=== PATIENT | female | born 1960 | race Caucasian/White ===

== ENCOUNTER 2017-09-03 21:32 | Emergency (ER) | payer OTHER ==
[~2017-09-03] VITALS: Ht 167.6 cm; Wt 103.4 kg
[2017-09-04 01:13] VITALS: BP 132/76
== END 2017-09-04 01:13 | disposition home or self-care (01) ==
LOC: ED 21:32
DX: S41.111A Laceration without foreign body of right upper arm, initial encounter (principal); I10 Essential (primary) hypertension; E11.9 Type 2 diabetes mellitus without complications; Z79.4 Long term (current) use of insulin; Z88.5 Allergy status to narcotic agent; W22.8XXA Striking against or struck by other objects, initial encounter; Y93.89 Activity, other specified; Y99.8 Other external cause status; Y92.89 Other specified places as the place of occurrence of the external cause
CPT/HCPCS: 90715

== ENCOUNTER 2018-03-29 22:27 | Emergency (ER) | payer OTHER ==
[~2018-03-29] VITALS: Ht 167.6 cm; Wt 104.3 kg
[2018-03-29 22:39] VITALS: Ht 167.6 cm; Wt 104.3 kg
[2018-03-30 00:09] VITALS: BP 104/68
== END 2018-03-30 00:25 | disposition home or self-care (01) ==
LOC: ED 22:27
DX: S86.812A Strain of other muscle(s) and tendon(s) at lower leg level, left leg, initial encounter (principal); S50.02XA Contusion of left elbow, initial encounter; I10 Essential (primary) hypertension; E11.9 Type 2 diabetes mellitus without complications; Z88.5 Allergy status to narcotic agent; W10.9XXA Fall (on) (from) unspecified stairs and steps, initial encounter; Y93.89 Activity, other specified; Y92.89 Other specified places as the place of occurrence of the external cause; Y99.8 Other external cause status
CPT/HCPCS: J1885; Q0092

== ENCOUNTER 2018-05-21 03:39 | Inpatient (IN) | payer OTHER ==
[~2018-05-21] VITALS: Ht 167.6 cm; Wt 109.1 kg
[2018-05-21 04:11] LABS: BASOPHIL % 1.4 % (0-2); PLATELET COUNT 285 x10^3mcL (130-400); RED CELL DISTRIBUTION WIDTH 13.9 % (11.5-14.5)
[2018-05-21 04:20] LABS: CALCIUM 9.2 mg/dL (8.5-10.1); CARBON DIOXIDE 30.3 mmol/L (21-32); CHLORIDE SERUM 99 mmol/L (98-107); GFR1 > 60 mL/min; GLUCOSE SERUM 95 mg/dL (74-106); POTASSIUM SERUM 3.1 mmol/L (3.5-5.1); SODIUM SERUM 140 mmol/L (136-145)
[2018-05-21 04:25] LABS: ALBUMIN 3.8 g/dL (3.4-5.0); ALKALINE PHOSPHATASE 71 U/L (46-116); ALT/SGPT 45 U/L (14-59); AST/SGOT 35 U/L (15-37); BILIRUBIN TOTAL 0.34 mg/dL (0.20-1.00); TOTAL PROTEIN, SERUM 7.3 g/dL (6.4-8.2)
[2018-05-21] MEDS ORDERED: ZOLOFT25 MG PO (04:55)
[2018-05-21] MEDS ORDERED: METFORMIN HYDR500 M1 PO (04:55)
[2018-05-21] MEDS ORDERED: ZESTRIL20 MG PO (04:56)
[2018-05-21] MEDS ORDERED: FARXIGA10 MG PO (04:56)
[2018-05-21] MEDS ORDERED: HUMULIN 70/303 ML (04:57)
[2018-05-21] MEDS ORDERED: TRULICITY0.75 MG/0. (04:57)
[2018-05-21] MEDS ORDERED: ATENOLOL/CHLORT1 TA1 PO (04:57)
[2018-05-21 05:43] LABS: CHOLESTEROL/HDL RATIO 3.4; MAGNESIUM 1.9 mg/dL (1.8-2.4); PHOSPHOROUS 3.7 mg/dL (2.5-4.9)
[2018-05-21 05:47] VITALS: BP 105/51
[2018-05-21 05:48] LABS: T3 TOTAL 1.35 ng/mL
[2018-05-21 05:52] LABS: FREE T4 1.03 ng/dL (0.76-1.46); FREE THYROXINE INDEX 3.3 ug/dL (1.4-4.5); T4(THYROXINE) 9.3 ug/dL (4.7-13.3)
[2018-05-21 07:56] VITALS: BP 107/60
[2018-05-21 10:26] LABS: microscopic required? NO
[2018-05-21 10:49] LABS: UA SPECIFIC GRAVITY 1.025 (1.005-1.035); urine erythrocyte NEGATIVE (NEGATIVE)
[2018-05-21 12:59] VITALS: BP 114/69
[2018-05-21 20:59] VITALS: BP 113/66
[2018-05-22 05:13] VITALS: BP 113/57
[2018-05-22 07:12] LABS: BASOPHIL % 1.2 % (0-2); PLATELET COUNT 221 x10^3mcL (130-400); RED CELL DISTRIBUTION WIDTH 14.3 % (11.5-14.5)
[2018-05-22 08:04] LABS: CALCIUM 8.9 mg/dL (8.5-10.1); CARBON DIOXIDE 28.7 mmol/L (21-32); CHLORIDE SERUM 103 mmol/L (98-107); CREATININE SERUM 0.9 mg/dL (0.6-1.0); GFR1 > 60 mL/min; GLUCOSE SERUM 166 mg/dL (74-106); MAGNESIUM 1.9 mg/dL (1.8-2.4); PHOSPHOROUS 3.4 mg/dL (2.5-4.9); POTASSIUM SERUM 3.8 mmol/L (3.5-5.1); SODIUM SERUM 140 mmol/L (136-145)
[2018-05-22 08:24] VITALS: BP 144/60
[2018-05-22 11:26] VITALS: BP 120/67
== END 2018-05-22 15:44 | disposition home or self-care (01) | DRG 206 ==
LOC: ED 03:39 → DU 04:56
PROVIDERS: Emergency Medicine; Family Medicine
DX: M94.0 Chondrocostal junction syndrome [Tietze] (principal); E11.65 Type 2 diabetes mellitus with hyperglycemia; Z79.4 Long term (current) use of insulin; Z88.6 Allergy status to analgesic agent; I10 Essential (primary) hypertension; Z90.49 Acquired absence of other specified parts of digestive tract; E66.01 Morbid (severe) obesity due to excess calories; I48.0 Paroxysmal atrial fibrillation; E87.6 Hypokalemia; Z68.38 Body mass index [BMI] 38.0-38.9, adult; E78.1 Pure hyperglyceridemia; Z82.49 Family history of ischemic heart disease and other diseases of the circulatory system; Z87.891 Personal history of nicotine dependence
CPT/HCPCS: 83880; 84439; A9500; J2405; J2785; J3010; J7030; Q0092

== ENCOUNTER 2019-04-22 09:47 | Emergency (ER) | payer OTHER ==
[~2019-04-22] VITALS: Ht 167.6 cm; Wt 101.6 kg
[~2019-04-22 09:47] MED LIST: ATENOLOL/CHLORT1 TA1 PO; FARXIGA10 MG PO; HUMULIN 70/303 ML; METFORMIN HYDR500 M1 PO; TRULICITY0.75 MG/0.; ZESTRIL20 MG PO; ZOLOFT25 MG PO
[2019-04-22 09:52] VITALS: Ht 167.6 cm; Wt 101.6 kg
[2019-04-22 11:12] VITALS: BP 143/84
== END 2019-04-22 11:12 | disposition home or self-care (01) ==
LOC: ED 09:47
DX: J06.9 Acute upper respiratory infection, unspecified (principal); R09.1 Pleurisy; I10 Essential (primary) hypertension; E11.9 Type 2 diabetes mellitus without complications; Z88.5 Allergy status to narcotic agent; Z90.49 Acquired absence of other specified parts of digestive tract

== ENCOUNTER 2019-05-18 13:42 | Emergency (ER) | payer OTHER ==
[~2019-05-18] VITALS: Ht 167.6 cm; Wt 101.6 kg
[2019-05-18 13:48] VITALS: Ht 167.6 cm; Wt 101.6 kg
[2019-05-18 16:12] VITALS: BP 127/94
== END 2019-05-18 16:07 | disposition home or self-care (01) ==
LOC: ED 13:42
DX: H10.89 Other conjunctivitis (principal); I10 Essential (primary) hypertension; E11.9 Type 2 diabetes mellitus without complications; Z90.49 Acquired absence of other specified parts of digestive tract; Z88.5 Allergy status to narcotic agent

== ENCOUNTER 2019-08-17 20:23 | Emergency (ER) | payer OTHER ==
[~2019-08-17] VITALS: Ht 167.6 cm; Wt 99.8 kg
[2019-08-17 20:37] VITALS: Ht 167.6 cm; Wt 99.8 kg
[2019-08-17 23:31] VITALS: BP 145/91
== END 2019-08-17 23:31 | disposition home or self-care (01) ==
LOC: ED 20:23
DX: S92.512A Displaced fracture of proximal phalanx of left lesser toe(s), initial encounter for closed fracture (principal); I10 Essential (primary) hypertension; E11.9 Type 2 diabetes mellitus without complications; Z90.49 Acquired absence of other specified parts of digestive tract; Z88.5 Allergy status to narcotic agent; W18.30XA Fall on same level, unspecified, initial encounter; Y93.89 Activity, other specified; Y92.89 Other specified places as the place of occurrence of the external cause; Y99.8 Other external cause status
CPT/HCPCS: J1885